=== PATIENT | female | born 1980 | race African-American/Black ===

== ENCOUNTER → 2021-04-07 00:36 | Outpatient (CLI) | payer OTHER, SELFPAY ==
[2021-04-07 18:23] LABS: SARS-CoV-2 RNA PCR Negative
== END ==
PROVIDERS: PCP Internal Medicine Gastroenterology; Visit Provider Obstetrics & Gynecology
DX: Z01.812 Encounter for preprocedural laboratory examination (principal); Z20.822 Contact with and (suspected) exposure to COVID-19
CPT/HCPCS: C9803; U0003; U0005

== ENCOUNTER 2021-04-07 09:06 | Outpatient (CLI) | payer OTHER, SELFPAY ==
--- NOTE | 2021-04-07 09:19 | ECG_ITS ---
Measurements Intervals [place] Rate: 80 P: 53 WA: 159 QRS: 58 QRSD: 77 T: 41 QT: 350 QTc: 405 Interpretive Statements SINUS RHYTHM WITH SINUS ARRHYTHMIA POSSIBLE LEFT ATRIAL ENLARGEMENT BORDERLINE ECG Electronically Signed On 04-07-2021 15:50:34 CDT by Ricardo Pak D.O.
[2021-04-07 09:59] LABS: Hematocrit 41.8 % (37.0-47.0); Hemoglobin 12.7 g/dL (12.0-15.0)
[2021-04-07 10:08] LABS: Anion Gap 10 mmol/L (8-16); Blood Urea Nitrogen 14 mg/dL (7-17); Calcium 9.2 mg/dL (8.4-10.2); Carbon Dioxide 22 mmol/L (22-30); Chloride 106 mmol/L (98-107); Estimated Glomerular Filt Rate > 60; Glucose 125 mg/dL (65-110); Potassium 3.6 mmol/L (3.4-5.0); Sodium 138 mmol/L (137-145)
== END 2021-04-07 09:07 | disposition home or self-care (01) ==
LOC: ANHLAB 09:10
PROVIDERS: PCP Internal Medicine Gastroenterology; Visit Provider Anesthesiology
DX: Z01.818 Encounter for other preprocedural examination (principal); D64.9 Anemia, unspecified; I10 Essential (primary) hypertension; Z79.899 Other long term (current) drug therapy
CPT/HCPCS: 36415; 80048; 85014; 85018; 86850; 86900; 86901; 93005; C9803; U0003; U0005

== ENCOUNTER 2021-04-11 01:18 | Day surgery (SDC) | payer OTHER, SELFPAY ==
[2021-04-03 14:50] VITALS: BMI 32.4
[2021-04-11] VITALS (12 sets, daily range): BP systolic 145–192; BP diastolic 75–112; PULSE 67–91; RESP 13–18; TEMP 36.4–37; O2SAT 97–100
[2021-04-11] MEDS: ACETAMINOPHEN 500 MG TABLET 1000 MG PO (06:50)
[2021-04-11] MEDS: LACTATED RINGERS 1,000 ML 30 ML IV CONT ×2 (06:58→09:47)
[2021-04-11] MEDS: KETOROLAC 15 MG/ML VIAL (*BKC) IV PUSH (07:01)
--- NOTE | 2021-04-11 07:08 | WPDANESEPPF ---
Anes - Initial Pre Proc Eval Procedure: Operation Date: 04/11/21 07:30 Proposed Procedures p Total Laparoscopic Hysterectomy with Bilateral Salpingo-Oophorectomy - Dawit Elizondo MD Date/Time: 04/11/21 07:08 Surgeon: Dawit Elizondo MD Pre Op Diagnosis: uterine leiomyoma Patient Data Age: 40 Gender: F Height: 1.7 m Weight: 91 kg Last Vital Signs Temp 98.1 F 04/11/21 06:41 Pulse 89 04/11/21 06:41 Resp 16 04/11/21 06:41 BP 156/81 H 04/11/21 06:41 Pulse Ox 100 04/11/21 06:41 Allergies Allergy/AdvReac Type Severity Reaction Status Date / Time No Known Allergies Allergy Verified 04/11/21 06:43 Home Medications Medication Instructions Recorded Confirmed Type aspirin [Adult Low Dose Aspirin] 81 mg PO DAILY 04/03/21 04/11/21 History atorvastatin 20 mg PO HS 04/03/21 04/11/21 History cetirizine 10 mg PO DAILY 04/03/21 04/11/21 History ergocalciferol (vitamin D2) 1,250 mcg PO WEEKLY 04/03/21 04/11/21 History ferrous sulfate [FeroSul] 325 mg PO EVERY OTHER DAY 04/03/21 04/11/21 History losartan-hydrochlorothiazide 1 tablet PO DAILY 04/03/21 04/11/21 History rivaroxaban [Xarelto] 2.5 mg PO BID 04/03/21 04/11/21 History zolpidem 10 mg PO HS 04/03/21 04/11/21 History Patient hx anesthesia problems: none Family hx anesthesia problems: none Results Review: All pre-operative results and documents have been reviewed as part of the pre-operative evaluation. [facility] Past Medical History Medical History (Updated 04/11/21 @ 07:08 by Fady Cole MD) H/O deep vein thrombophlebitis of lower extremity Hyperlipidemia Hypertension OLIVIA (obstructive sleep apnea) Social History Social History Smoking packs per day: 0.5 Smoking cigarettes per day: 10.0 Years smoked: 30 Smoking pack-years: 15.00 Tobacco type: cigarettes Alcohol intake: never Substance use: never Substance use type: does not use Living arrangements: with family Spiritual care concerns: No Anes - Eval Final PreProcedure Day of Procedure 11/03/21 07:08 Patient weight: obese Heart: regular rate and rhythm Lungs: clear to auscultation Airway: Mallampati scale class III Neurological: alert and oriented Last oral intake: >/= 8 hours ASA classification: III Emergent: no Anesthetic plan: proceed Anesthesia type and monitoring: general ETT and standard monitoring Results Review: All pre-operative results and documents have been reviewed as part of the pre-operative evaluation. Informed Consent: The patient's anesthetic plan and its attendant risks and benefits were discussed with the patient/family/POA. Questions were solicited and answers provided to the satisfaction of the patient/family/POA.
--- NOTE | 2021-04-11 07:15 | WPDHPUPDATE1 ---
History and Physical Update Update Date/Time: 04/11/21 07:15 History and Physical has been reviewed, including an updated exam of the patient. There are NO changes in the patient's condition. Risks, benefits, and alternatives have been discussed and questions answered. Patient agrees to proceed with procedure.
[2021-04-11] MEDS: ceFAZolin 2 GM/D5W 50 ML 2 GM/50 ML BAG IVPB (07:25)
[2021-04-11] MEDS: fentaNYL CITRATE INJ (*CRX) 100 MCG/2 ML VIAL 25 MCG IV PUSH ×5 (09:56→10:15)
--- NOTE | 2021-04-11 09:57 | W.PM.PROC2 ---
Procedure Note - Detailed Date of Procedure 04/11/21 Pre-op Diagnosis uterine leiomyoma Post-op Diagnosis same Procedure Performed Total laparoscopic hysterectomy and bilateral salpingo-oophorectomy., adhesiolysis 1 hour Surgeon Dawit Elizondo MD Anesthesia general Indications Severe menometrorrhagia, uterine fibroids, Findings Very large uterus with multiple fibroids, dense adhesions between the ovaries and the uterus and posterior cervix on the right. Normal-appearing ovarian parenchyma. Description of Procedure This patient was taken to the operating room. She was prepped and draped in the dorsal lithotomy position after induction of general anesthesia. The uterine manipulator and Taz cup were placed. This was done with a speculum and tenaculum. The speculum was placed. The cervix was grasped with a tenaculum. The stay sutures were placed at 3 and 9:00 a.m.. The stay sutures of 0 Vicryl were brought through the appropriately sized Taz cup. The tip of the JAVIER manipulator was placed in the intrauterine cavity. The cup was slid into place around the cervix and into the fornices. It was locked into place. The sutures were then wrapped around the handle and tied under tension. A 5 mm skin incision was made in the left upper quadrant the abdomen. A 5 mm trocar was inserted into the intrauterine cavity under direct visualization of the scope. Pneumoperitoneum was achieved. A left lower quadrant 11 mm incision was made with scalpel. An 11 mm trocar was inserted into the anterior abdominal cavity under direct visualization the scope. A 5 mm infraumbilical incision was made with a scalpel and a 5 mm trocar was inserted the intra-abdominal cavity under direct visualization of the scope. Bilateral ureteral lysis was performed. This was done from the pelvic brim down to the uterine artery. This was done with careful dissection using sharp and blunt dissection. The infundibulopelvic ligaments were isolated after identification of the ureters bilaterally. These infundibulopelvic ligaments were cauterized and transected with LigaSure cautery. The para ovarian tissue was cauterized and transected with LigaSure cautery bilaterally. Moving around the ovary into the broad ligament the tissue was cauterized transected with LigaSure cautery. The round ligaments were cauterized transected with LigaSure cautery this was all done in a bilateral fashion. In a stepwise fashion along the lateral aspects of the uterus the round ligament and broad ligaments were cauterized transected down to the level of the uterine arteries. A bladder flap was created in the bladder was moved distally to the end of the cervix and over the Taz cup. The bilateral uterine arteries were cauterized and transected. Colpotomy was then performed. In a circumferential fashion the vagina was transected using unipolar cautery. The incision was made down on the Taz cup. The uterus, cervix, fallopian tubes and ovaries were taken out through the vagina. A pneumo occluder was placed in the vagina. Extensive adhesiolysis was performed during this case. This was a patient suffering from endometriosis. The ovaries were adherent to the posterior uterus and cervix. 1 hour adhesiolysis was performed. The uterus was very large. It had to be bifurcated to be removed. It was amputated from the cervix also prior to removal. The vaginal cuff was closed with a 0 V lock suture in a running fashion. The pelvis was irrigated with copious amounts antibiotic irrigation. The ureters were again examined and found to be intact and flowing freely under the uterine arteries into the bladder. The bladder was intact. It was examined directly. The vagina was irrigated with Betadine solution after removal of the Pneumo occluder. The patient was taken to recovery room. She was stable condition. Sponge lap and needle counts were correct x2. Estimated Blood Loss -200.0 Urine Output -75.0 Drains Yes
--- NOTE | 2021-04-11 11:07 | SUR.PHASEI ---
PATIENT C/O'D ONCE SHE WAS AWAKE OF THE HAHN CATHETER; STATED SHE WOULD REMOVE IT HERSELF. DR. RODRIGUEZ CALLED WHO INSTRUCTED TO REMOVE IT IN RECOVERY; PATIENT STATED SHE FELT RELIEF AFTER IT WAS REMOVED.
[2021-04-11] MEDS: DEXTROSE 5%/0.45% SOD CHL 1,000 ML 125 ML IV CONT (11:36)
[2021-04-11] MEDS: KETOROLAC 30 MG/ML VIAL (*BKC) IV PUSH (11:42)
[2021-04-11] MEDS: HYDROcodone/acetaminophen (*CRX) 10-325 MG TABLET 1 TAB PO ×4 (12:21→23:23)
[2021-04-11] MEDS: ONDANSETRON INJ 4 MG/2 ML VIAL IV PUSH (13:24)
[2021-04-11] MEDS: MORPHINE SULFATE (*CRX) 2 MG/ML INJ IV PUSH ×2 (13:43→21:56)
[2021-04-11] MEDS: hydroCHLOROthiazide 25 MG TABLET PO (16:58)
[2021-04-11] MEDS: LOSARTAN POTASSIUM 100 MG TABLET PO (16:59)
--- NOTE | 2021-04-11 19:03 | PC.NURSE ---
1100 pt admitted to room 281 per bed from PACU after Laproscopic vag hyst with Bilateral S&O today with Dr. Elizondo. On admission pt insistent to get up to try to void; bedside commode brought to room; pt assisted up, she was unable to void. She moved easily and tolerated the activity well. Made comfortable in bed, encouraged to try to sleep. Oriented to room, staffing and procedures. Pt's VS WNL, with elevated BP, and assessment WNL.
--- NOTE | 2021-04-11 19:06 | PC.NURSE ---
1130 Repeat BP, l165/87; pt resting. 1220 to bedside commode; unable to void. 1329 Dr. Elizondo contacted for orders for additional pain med and update on pt; orders received. 1343 Morphine 2mg IVP given with good results; pt fell asleep and reported less pain within 10-15 minutes. 1400 Pt straight cathed as ordered , 375cc clear yellow urine obtained. Pt also reported feeling much more comfortable. Pt slept until about 1630; she got up to bedside commode and voided 400cc. 1745 Nurse assisted pt to bathroom; pt voided 400 cc without difficulty. Pt moving well and she seems much more comfortable.
[2021-04-11] MEDS: LABETALOL HCL 100 MG TABLET 200 MG PO (19:57)
[2021-04-11] MEDS: ATORVASTATIN 20 MG TABLET PO (21:52)
[2021-04-11] MEDS: RIVAROXABAN 2.5 MG TABLET PO (21:52)
[2021-04-11] MEDS: ZOLPIDEM TARTRATE (*CRX) 5 MG TABLET 10 MG PO (21:52)
[2021-04-12] VITALS: BP 145/90; PULSE 97; RESP 16; TEMP 37; O2SAT 100
[2021-04-12] MEDS: MORPHINE SULFATE (*CRX) 2 MG/ML INJ IV PUSH ×3 (00:01→04:03)
[2021-04-12] MEDS: HYDROcodone/acetaminophen (*CRX) 10-325 MG TABLET 1 TAB PO ×3 (02:30→08:27)
[2021-04-12 04:00] VITALS: BP 150/86; PULSE 92; RESP 16; TEMP 36.8; O2SAT 98
[2021-04-12] MEDS: LORATADINE 10 MG TABLET PO (07:35)
[2021-04-12] MEDS: IBUPROFEN 600 MG TABLET PO ×2 (07:35)
[2021-04-12] MEDS: ASPIRIN 81 MG CHEWABLE TABLET PO (07:36)
[2021-04-12] MEDS: LOSARTAN POTASSIUM 100 MG TABLET PO (07:36)
[2021-04-12] MEDS: RIVAROXABAN 2.5 MG TABLET PO (07:36)
[2021-04-12 07:52] VITALS: BP 144/91; PULSE 82; RESP 18; TEMP 36.8
--- NOTE | 2021-04-12 08:03 | PC.NURSE ---
Discharge instructions given to pt. including when to see MD for follow up appt. No questions or concerns voiced. Daughter at side.
--- NOTE | 2021-04-12 08:17 | PM.GYNPNOP ---
EMISSIONS TECHNICIAN - A/P Postoperative Procedures: Procedures Operation Date: 04/11/21 07:30 Actual Procedure Side Surgeon p Total Laparoscopic Hysterectomy with Bilateral Salpingo-Oophorectomy Bilateral Dawit Elizondo MD Postoperative day: 1 Postoperative status: doing well Postoperative plan: see orders Time Spent With Patient Time: Total time spent is greater than 50% in coordination of care (as documented) at patient's floor/unit and/or counseling patient: Time with patient: less than 15 minutes EMISSIONS TECHNICIAN- PN:Subj Post-Op Subjective Date/time seen: 04/12/21 08:17 Subjective: patient reports feeling better, patient has no complaints and pain is well controlled Exam Const: General: healthy appearing, comfortable and no acute distress Resp: Auscultation: clear to auscultation bilaterally, no rales, no rhonchi and no wheezes Cardio: Rate: regular rate Heart sounds: no click, no murmurs and no rubs GI: Inspection: non-distended Auscultation: normal bowel sounds Extrem: General: normal to inspection, no pedal edema and no calf tenderness EMISSIONS TECHNICIAN - PN: Obj Data Vital Signs Vital Signs: Vital Signs - 24 hr 04/11/21 09:47 04/11/21 10:00 04/11/21 10:15 Temperature 97.8 F Pulse Rate 80 74 91 Respiratory Rate 18 14 15 Blood Pressure 172/92 H 174/88 H 180/112 H Pulse Oximetry 100 100 100 04/11/21 10:30 04/11/21 10:45 04/11/21 11:15 Temperature 97.5 F L Pulse Rate 74 70 78 Respiratory Rate 14 13 18 Blood Pressure 172/78 H 152/83 H 186/75 H Pulse Oximetry 97 98 100 04/11/21 11:35 04/11/21 16:45 04/11/21 19:10 Temperature 97.6 F 98.6 F Pulse Rate 72 67 Respiratory Rate 18 16 Blood Pressure 165/87 H 190/97 H 192/85 H Pulse Oximetry 100 100 04/11/21 19:57 04/11/21 21:50 04/12/21 00:00 Temperature 98.6 F Pulse Rate 67 84 97 Respiratory Rate 16 Blood Pressure 145/85 H 145/90 H Pulse Oximetry 100 04/12/21 04:00 04/12/21 07:52 Temperature 98.2 F 98.3 F Pulse Rate 92 82 Respiratory Rate 16 18 Blood Pressure 150/86 H 144/91 H Pulse Oximetry 98 Intake/Output Intake/Output: Intake & Output 04/09/21 04/10/21 04/11/21 04/12/21 23:59 23:59 23:59 23:59 Intake Total 2300 Output Total 1625 Balance 675 Meds/Results Medications: Active Medications Generic Name Dose Route Start Last Admin Trade Name Freq PRN Reason Stop Dose Admin Hydrocodone Bitart/Acetaminophen 1 tab 04/11/21 10:50 Hydrocodone/Acetaminophen (*Crx) 5-325 Mg Tablet PO Q3H PRN Pain Rated 5 or Less Hydrocodone Bitart/Acetaminophen 1 tab 04/11/21 10:50 04/12/21 05:30 Hydrocodone/Acetaminophen (*Crx) 10-325 Mg Tablet PO 1 tab Q3H PRN Administration Pain Rated 6 or Greater Aspirin 81 mg 04/12/21 09:00 04/12/21 07:36 Aspirin 81 Mg Chewable Tablet PO 05/12/21 08:59 81 mg DAILY CAMERON Administration Atorvastatin Calcium 20 mg 04/11/21 21:00 04/11/21 21:52 Atorvastatin 20 Mg Tablet PO 20 mg HS CAMERON Administration Ergocalciferol 50,000 unit 04/15/21 09:00 Ergocalciferol 50,000 Unit Capsule PO Ma@0900 CAMERON Ferrous Sulfate 324 mg 04/11/21 11:00 04/11/21 14:55 Ferrous Sulfate 324 Mg Tablet PO Not Given Q48HR CAMERON Hydrochlorothiazide 25 mg 04/12/21 09:00 04/11/21 16:58 Hydrochlorothiazide 25 Mg Tablet PO 05/12/21 08:59 25 mg DAILY CAMERON Administration Dextrose/Sodium Chloride 1,000 mls @ 125 mls/hr 04/11/21 10:50 04/12/21 04:26 Dextrose 5% Sodium Chloride 0.45% IV CONT Not Given .Q8H CAMERON Ibuprofen 600 mg 04/11/21 10:50 04/12/21 07:35 Ibuprofen 600 Mg Tablet PO 600 mg Q6H PRN Administration Cramping Ketorolac Tromethamine 30 mg 04/11/21 10:50 04/11/21 11:42 Ketorolac 30 Mg/Ml Vial (*Bkc) IV PUSH 04/16/21 10:49 30 mg Q6H PRN Administration Pain Rated 4-6 Loratadine 10 mg 04/12/21 09:00 04/12/21 07:35 Loratadine 10 Mg Tablet PO 10 mg QAM CAMERON Administration Losartan Potassium 100 mg
== END 2021-04-12 08:31 | disposition home or self-care (01) ==
LOC: ANHSURGERY 06:19 → ANHOB2 10:53
PROVIDERS: PCP Internal Medicine Gastroenterology; Visit Provider Obstetrics & Gynecology
PROC: 0UT9FZZ Resection of Uterus, Via Natural or Artificial Opening With Percutaneous Endoscopic Assistance (ICD-10-PCS; CPT 58573; principal; 2021-04-11 07:30)
DX: D25.0 Submucous leiomyoma of uterus (principal); D25.1 Intramural leiomyoma of uterus; D25.2 Subserosal leiomyoma of uterus; N92.1 Excessive and frequent menstruation with irregular cycle; N73.6 Female pelvic peritoneal adhesions (postinfective); N80.0 Endometriosis of uterus; N83.8 Other noninflammatory disorders of ovary, fallopian tube and broad ligament; N80.1 Endometriosis of ovary; N83.12 Corpus luteum cyst of left ovary; I10 Essential (primary) hypertension; E78.5 Hyperlipidemia, unspecified; G47.33 Obstructive sleep apnea (adult) (pediatric); Z86.718 Personal history of other venous thrombosis and embolism; F17.210 Nicotine dependence, cigarettes, uncomplicated; E66.9 Obesity, unspecified; Z68.31 Body mass index [BMI] 31.0-31.9, adult; Z79.01 Long term (current) use of anticoagulants; Z79.82 Long term (current) use of aspirin
CPT/HCPCS: 58573; 88307; 99199; A9270; J0690; J1100; J1170; J1885; J2250; J2270; J2370; J2405; J2704; J2710; J3010; J7030; J7120